=== PATIENT | male | born 1975 | race Caucasian/White ===

== ENCOUNTER → 2022-07-06 | Outpatient (CLI) | payer OTHER | LOC: COL.RAD 07:00 | DX: G57.11 Meralgia paresthetica, right lower limb (principal) | CPT/HCPCS: A9575 ==

== ENCOUNTER → 2022-08-10 | Outpatient (CLI) | payer OTHER | LOC: MHCPAIN 08:47 | DX: M47.896 Other spondylosis, lumbar region (principal); M54.16 Radiculopathy, lumbar region; M47.892 Other spondylosis, cervical region; M54.2 Cervicalgia | CPT/HCPCS: G0463 ==

== ENCOUNTER → 2022-08-25 | Outpatient (CLI) | payer OTHER | LOC: MHCPAIN 08:08 | DX: M47.817 Spondylosis without myelopathy or radiculopathy, lumbosacral region (principal); M54.16 Radiculopathy, lumbar region | CPT/HCPCS: J1100; Q9967 ==